=== PATIENT | female | born 1995 | race Caucasian/White ===

== ENCOUNTER 2017-08-01 16:33 | Emergency (ER) | payer OTHER ==
[~2017-08-01] VITALS: Ht 170.2 cm; Wt 85.0 kg
[2017-08-01 16:39] VITALS: BP 129/62; PULSE 96; RESP 28; TEMP 99; O2SAT 100
[2017-08-01] MEDS ORDERED: MELO15TA20 PO (16:44)
[2017-08-01] MEDS ORDERED: SODIUM CHLORIDE 0.9% FLUSH 10 ML FLUSH IVF PRN (17:15)
[2017-08-01] MEDS ORDERED: KETOROLAC TROMETHAMINE 30 MG/ML (IVP) VIAL IV PUSH ONE (17:30)
--- NOTE | 2017-08-01 17:45 | RADRPT ---
EXAM DATE/TIME: 08/01/2017 17:35 [place] COMPARISON: No previous studies available for comparison. INDICATIONS : Chest pain. MEDICAL HISTORY : None. SURGICAL HISTORY : None. ENCOUNTER: Initial ACUITY: 1 day PAIN SCORE: 10/10 LOCATION: Left chest FINDINGS: A single view of the chest demonstrates the lungs to be symmetrically aerated without evidence of mas s, infiltrate or effusion. The cardiomediastinal contours are unremarkable. Osseous structures are intact. CONCLUSION: No acute disease. Josias Fournier MD FACR on August 01, 2017 at 17:43 Board Certified Radiologist. This report was verified electronically.
[2017-08-01 17:53] LABS: BASOPHIL % 0.5 % (0.0-2.0); EOSINOPHIL # 0.2 TH/MM3 (0-0.4); HEMATOCRIT 36.8 % (35.0-46.0); HEMOGLOBIN 12.9 GM/DL (11.6-15.3); LYMPH % 22.9 % (9.0-44.0); LYMPHOCYTE # 1.7 TH/MM3 (1.0-4.8); MEAN CELL VOLUME 85.5 FL (80.0-100.0); MEAN CORPUSCULAR HGB CONC 35.1 % (32.0-36.0); MEAN PLATELET VOLUME 9.2 FL (7.0-11.0); MONO % 9.3 % (0.0-8.0); MONOCYTE # 0.7 TH/MM3 (0-0.9); NEUT % 65.3 % (16.0-70.0); PLATELET COUNT 257 TH/MM3 (150-450); RED BLOOD COUNT 4.31 MIL/MM3 (4.00-5.30); RED CELL DISTRIBUTION WIDTH 13.4 % (11.6-17.2); WHITE BLOOD COUNT 7.6 TH/MM3 (4.0-11.0)
[2017-08-01 18:11] LABS: BICARBONATE 20.4 MEQ/L (21.0-32.0); BLOOD UREA NITROGEN 11 MG/DL (7-18); CHLORIDE 111 MEQ/L (98-107); CREATININE 0.78 MG/DL (0.50-1.00); GLOMERULAR FILTRATION RATE 94 ML/MIN (>89); GLUCOSE,RANDOM 91 MG/DL (74-106); LIPASE 243 U/L (73-393); SODIUM (NA) 141 MEQ/L (136-145)
[2017-08-01 18:13] LABS: PROTHROMBIN TIME - PATIENT 10.5 SEC (9.8-11.6)
[2017-08-01 18:15] LABS: TROPONIN I LESS THAN 0.02 NG/ML (0.02-0.05)
[2017-08-01 18:19] LABS: D-DIMER 0.29 MG/L FEU (0.00-0.50)
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
--- NOTE | 2017-08-01 18:55 | PD ---
Physical Exam Narrative I, Dr. Pena, have reviewed the advance practice practitioner's documentation and am in agreement, met with the patient face to face, made the diagnosis, and the medical decision making was done by me. *My assessment and Findings: Anxiety vs, costochondritis vs. atypical chest pain vs. pneumonia 21yo F with no PMH here with c/o left sided chest pain today. Pain is worst with palpation. Also felt clammy in bilateral hands. Pt appears anxious. Occasional cough. Denies any fever, sob, n/v, abdominal pain, focal weakness or numbness. Denies any family history of sudden cardiac . Denies any cig smoking or cocaine use. Labs reviewed, no leukocytosis. H/H normal. Troponin negative. Mild hypokalemia at 3.3, can replace by herself orally. D- dimer negative. CXR negative. Pt also no cardiac risk factors and pain is very atypical. Pt given multiple pain meds with some improvement. Pt appears anxious so ativan given. Do not think chest pain is cardiac. Return precautions given. Data Data Last Documented VS Vital Signs Date Time Temp Pulse Resp B/P (MAP) Pulse Ox O2 Delivery O2 Flow Rate FiO2 08/01/17 19:48 92 132/79 (96) 08/01/17 19:00 26 100 Nasal Cannula 2.00 08/01/17 16:39 99.0 Orders Orders Electrocardiogram (08/01/17 17:11) Basic Metabolic Panel (Bmp) (08/01/17 17:11) Ckmb (Isoenzyme) Profile (08/01/17 17:11) Complete Blood Count With Diff (08/01/17 17:11) D-Dimer (08/01/17 17:11) Magnesium (Mg) (08/01/17 17:11) Prothrombin Time / Inr (Pt) (08/01/17 17:11) Act Partial Throm Time (Ptt) (08/01/17 17:11) Troponin I (08/01/17 17:11) Lipase (08/01/17 17:11) Chest, Single Ap (08/01/17 17:11) Ecg Monitoring (08/01/17 17:11) Iv Access Insert/Monitor (08/01/17 17:11) Oximetry (08/01/17 17:11) Sodium Chloride 0.9% Flush (Ns Flush) (08/01/17 17:15) Ed Urine Pregnancytest Poc (08/01/17 17:11) Ketorolac Inj (Toradol Inj) (08/01/17 17:30) Lorazepam (Ativan) (08/01/17 19:00) Acetaminophen (Tylenol) (08/01/17 19:00) Acetamin-Hydrocod 325-5 Mg (Rueter 5-325 (08/01/17 20:45) Labs Laboratory Tests Test 08/01/17 16:50 White Blood Count 7.6 TH/MM3 Red Blood Count 4.31 MIL/MM3 Hemoglobin 12.9 GM/DL Hematocrit 36.8 % Mean Corpuscular Volume 85.5 FL Mean Corpuscular Hemoglobin 30.0 PG Mean Corpuscular Hemoglobin Concent 35.1 % Red Cell Distribution Width 13.4 % Platelet Count 257 TH/MM3 Mean Platelet Volume 9.2 FL Neutrophils (%) (Auto) 65.3 % Lymphocytes (%) (Auto) 22.9 % Monocytes (%) (Auto) 9.3 % Eosinophils (%) (Auto) 2.0 % Basophils (%) (Auto) 0.5 % Neutrophils # (Auto) 5.0 TH/MM3 Lymphocytes # (Auto) 1.7 TH/MM3 Monocytes # (Auto) 0.7 TH/MM3 Eosinophils # (Auto) 0.2 TH/MM3 Basophils # (Auto) 0.0 TH/MM3 CBC Comment DIFF FINAL Differential Comment Prothrombin Time 10.5 SEC Prothromb Time International Ratio 1.0 RATIO Activated Partial Thromboplast Time 23.8 SEC D-Dimer Quantitative (PE/DVT) 0.29 MG/L FEU Blood Urea Nitrogen 11 MG/DL Creatinine 0.78 MG/DL Random Glucose 91 MG/DL Calcium Level 9.0 MG/DL Magnesium Level 2.0 MG/DL Sodium Level 141 MEQ/L Potassium Level 3.3 MEQ/L Chloride Level 111 MEQ/L Carbon Dioxide Level 20.4 MEQ/L Anion Gap 10 MEQ/L Estimat Glomerular Filtration Rate 94 ML/MIN Total Creatine Kinase 95 U/L Troponin I LESS THAN 0.02 NG/ML Lipase 243 U/L [facility] Supervised Visit with RYAN: Yes Interpretation(s) EKG: NSR 81bpm. Normal axis. No ST segment elevation or depression. Diagnosis Primary Impression: Atypical chest pain Patient Instructions: General Instructions Departure Forms: Tests/Procedures Additional Instruction: Please follow up with your primary care physician in 2-3 days. Return to the ED if symptoms worsen. Med/Other Pt SpecificInfo: Prescription(s) given Scripts Ibuprofen (Ibuprofen) 600 Mg Tab 600 MG PO Q8HR Y for PAIN, #20 TAB 0 Refills Prov: Aysha Pena DO 08/01/17 Disposition: 01 DISCHARGE HOME Condition: Stable Aysha Pena DO Aug 01, 2017 18:55
[2017-08-01 19:00] VITALS: BP 120/70; PULSE 88; RESP 26; O2SAT 100
[2017-08-01] MEDS ORDERED: ACETAMINOPHEN 325 MG TAB PO ONE (19:00)
[2017-08-01] MEDS ORDERED: LORazepam 1 MG TAB PO ONE (19:00)
[2017-08-01 19:48] VITALS: BP 132/79; PULSE 92
[2017-08-01] MEDS ORDERED: IBUP-232 PO (20:38)
[2017-08-01] MEDS ORDERED: ACETAMINOPHEN/HYDROcodone 325 MG/5 MG TAB PO ONE (20:45)
--- NOTE | 2017-08-02 00:38 | EKG ---
Date Performed: 08/01/2017 Time Performed: 16:48:44 PTAGE: 21 years EKG: Sinus rhythm NORMAL ECG NO PREVIOUS TRACING DOCTOR: Jake Hale Interpretating Date/Time 08/02/2017 00:37:28
== END 2017-08-01 21:13 | disposition home or self-care (01) ==
LOC: NEPD 16:33
DX: R07.89 Other chest pain (principal); R05 Cough; E87.6 Hypokalemia; J45.909 Unspecified asthma, uncomplicated; Z79.899 Other long term (current) drug therapy
CPT/HCPCS: 71045; 80048; 82550; 83690; 83735; 84484; 84703; 85025; 85379; 85610; 85730; 93005; 96374; 99285; J1885